=== PATIENT | male | born 1960 | race Caucasian/White ===

== ENCOUNTER 2017-03-14 11:05 | Emergency (ER) | payer BC ==
[2017-03-14 11:58] LABS: URINE SOURCE CLEAN CATCH
[2017-03-14 12:10] LABS: URINE APPEARANCE CLEAR; URINE BILIRUBIN NEG (NEG); URINE BLOOD NEG (NEG); URINE COLOR YELLOW; URINE GLUCOSE NEG (NEG); URINE KETONE NEG (NEG); URINE LEUKOCYTE ESTERASE NEG (NEG); URINE NITRATE NEG (NEG); URINE PH 5.5 (5-8); URINE PROTEIN NEG (NEG); URINE SPECIFIC GRAVITY 1.011 (1.003-1.035); URINE UROBILINOGEN 0.2 MG/DL (NEG)
[2017-03-14 12:45] LABS: CULTURE INDICATED? NO
== END 2017-03-14 12:54 | disposition home or self-care (01) ==
LOC: CFTX 11:05 → CED 11:05 → CFTX 12:16
PROVIDERS: Physician Assistant
DX: S39.012A Strain of muscle, fascia and tendon of lower back, initial encounter (principal); X58.XXXA Exposure to other specified factors, initial encounter; Y92.9 Unspecified place or not applicable
CPT/HCPCS: 81003; 99283

== ENCOUNTER 2017-03-18 09:26 | Emergency (ER) | payer BC ==
--- NOTE | ~2017-03-18 | CT2 ---
[facility] A Service of [facility] RADIOLOGY TEXT RESULTS PATIENT: CEDRIC BARBOZA LOCATION: CFTX : 62 UNIT #: [id number] AGE: [address]: Jose Munson SEX: M ORDER DR: [id number] [facility] [address] [facility] [place] [facility]. [place], [place] [address] [id number] MR#: [id number] Acc #: [id number] NAME: CEDRIC BARBOZA : 1960 SEX: M STUDY DATE/TIME: 03/18/2017 11:19 UNIT: CFTX ROOM: STUDY DESCRIPTION: CT Abd and Pelv W Cont Attending Physician: Oral Munson Ordering Physician: Oral Munson Primary Care Physician: No Primary Care Physician MEDICAL IMAGING REPORT This report is preliminary unless electronic signature is present EXAM CT of the abdomen and pelvis with IV contrast media. HISTORY Right lower mid back pain, right lower and mid back pain for 1 week. TECHNIQUE Axial imaging of the abdomen and pelvis was performed with IV contrast media: This CT exam was performed with one or more of the following radiation dose reduction techniques: automatic exposure control, adjustment of mA and/or kV according to patient size, and iterative reconstruction. FINDINGS Lung bases are unremarkable. Liver, spleen, gallbladder, pancreas, and adrenal glands are normal. There is an exophytic incidental right renal cyst measuring 1.6 cm. There is no evidence of renal stones or hydronephrosis. Both ureters are well seen to the bladder and the bladder is normal. No dilated or thickened loops of bowel are seen. The appendix is normal. No pelvic masses or fluid collections are present. There is a periumbilical hernia containing fat. CONCLUSIONS 1. Incidental right renal cyst. 2. Periumbilical hernia containing fat. 3. No acute findings in the abdomen or pelvis. Dictated by... Joon Martinez M.D. THIS IS AN ELECTRONICALLY VERIFIED REPORT Joon Martinez M.D. at 03/21/2017 5:11 PM [email or web address] [facility] A Service of [facility] RADIOLOGY TEXT RESULTS PATIENT: CEDRIC BARBOZA LOCATION: [facility] : [birth year] UNIT #: [id number] AGE: [address]: Jose Munson SEX: M ORDER DR: TD: 03/18/2017 16:02 JOB #: [id number] MEDICAL IMAGING REPORT Page 1 of 1 COPY
[2017-03-18 10:45] LABS: BASOPHIL% 0.3 % (0-2.5); EOSINOPHIL# 0.1 X10e3 (0-0.7); EOSINOPHIL% 1.7 % (0.0-7.0); HEMATOCRIT 46.1 % (38.0-50.0); HEMOGLOBIN 15.1 gm/dL (13.0-16.0); LYMPHOCYTE# 1.3 X10e3 (1.0-3.5); LYMPHOCYTE% 20.5 % (17.0-45.0); MEAN CELL VOLUME 88.4 FL (83-96); MEAN CORPUSCULAR HEMOGLOBIN 29.1 PG (28-34); MEAN CORPUSCULAR HGB CONC 32.9 g/dL (30-36); MEAN PLATELET VOLUME 7.1 FL (6.5-11.5); MONOCYTE# 0.4 X10e3 (0-1.0); MONOCYTE% 6.8 % (3.0-12.0); NEUTROPHIL# 4.6 X10e3 (1.5-7.1); NEUTROPHIL% 70.7 % (40-75); PLATELET COUNT 249 X10e3 (140-420); RED BLOOD COUNT 5.21 X10e (3.90-5.60); RED CELL DISTRIBUTION WIDTH 13.7 % (11.0-15.5); WHITE BLOOD COUNT 6.5 X10e3 (4.0-10.5)
[2017-03-18 10:47] LABS: DIFF IND NO
[2017-03-18 11:09] LABS: ALBUMIN SERUM 4.1 g/dL (3.5-5.0); BILIRUBIN,TOTAL 0.9 mg/dL (0.2-2.0); CALCIUM SERUM 9.2 mg/dL (8.4-10.2); GLOM FILT RATE Estimated 84.4 mL/min (>60); POTASSIUM 4.6 mmol/L (3.5-5.1)
[2017-03-18 11:30] LABS: URINE SOURCE CLEAN CATCH
[2017-03-18 11:52] LABS: URINE APPEARANCE CLEAR; URINE BILIRUBIN NEG (NEG); URINE BLOOD NEG (NEG); URINE COLOR YELLOW; URINE GLUCOSE NEG (NEG); URINE KETONE NEG (NEG); URINE LEUKOCYTE ESTERASE NEG (NEG); URINE NITRATE NEG (NEG); URINE PROTEIN NEG (NEG); URINE SPECIFIC GRAVITY 1.011 (1.003-1.035); URINE UROBILINOGEN 0.2 MG/DL (NEG)
[2017-03-18 12:00] LABS: CULTURE INDICATED? NO
== END 2017-03-18 12:11 | disposition home or self-care (01) ==
LOC: CED 09:26 → CFTX 09:26
PROVIDERS: Nurse Practitioner
DX: S39.012A Strain of muscle, fascia and tendon of lower back, initial encounter (principal); N28.1 Cyst of kidney, acquired; I10 Essential (primary) hypertension; X58.XXXA Exposure to other specified factors, initial encounter; Y92.009 Unspecified place in unspecified non-institutional (private) residence as the place of occurrence of the external cause
CPT/HCPCS: 36415; 74177; 80053; 81003; 85025; 96372; 99284; J1885; Q9967